=== PATIENT | male | born 1985 | race Caucasian/White ===

== ENCOUNTER 2024-05-22 20:04 | Emergency (ER) | payer BC ==
[~2024-05-22] VITALS: Ht 180.3 cm; Wt 93.0 kg
[2024-05-22 22:03] VITALS: BP 120/67; O2SAT 97
== END 2024-05-22 22:03 | disposition home or self-care (01) ==
LOC: ER 20:13
DX: S86.112A Strain of other muscle(s) and tendon(s) of posterior muscle group at lower leg level, left leg, initial encounter (principal); M79.662 Pain in left lower leg; W18.39XA Other fall on same level, initial encounter; Y93.89 Activity, other specified; Y92.89 Other specified places as the place of occurrence of the external cause; Y99.8 Other external cause status; E78.5 Hyperlipidemia, unspecified; J45.909 Unspecified asthma, uncomplicated; Z90.49 Acquired absence of other specified parts of digestive tract
CPT/HCPCS: A4606; A4663